=== PATIENT | male | born 1960 | race Caucasian/White ===

== ENCOUNTER 2016-09-13 09:02 | Inpatient (IN) | payer MEDICAID ==
[2016-09-13] MEDS ORDERED: Sodium Chloride 0.9% 1,000 ML IV ONE (09:27)
--- NOTE | 2016-09-13 09:32 | ED Physician Chart ---
Chief Complaint/HPI - Patient Information Date Seen:: 09/13/16 Time Seen:: 09:27 Chief Complaint:: palpitations History of Present Illness:: pt says since awoke today not feeling right. has noted palpitations which he says he hasnt had before but defines as a awareness of heart beating which is unusual. no cp. feels not well w sob sensation at times and a feeling of lt headedness. no meka pmh but he did start lexapro about 3 weeks ago for depresion. also is on omeprazole for reflux. had a cardiac stress tst 5 yrs ago was ok. strong fam hx of cad. no leg edema of pain . pt tried eating a banana and milk w/o improvement. did drink etoh on new yrs but this is unusual and no drug or smoking hx. pt feels like his BP has been high today...has some hx of untxd htn by our records although he has never admitted to me to have been under regular compliant tx for it. He says he has not ever been txd for htn bc of insurance and financial reasons. 10;03a - pt now c/o more dizzy and lt headedness. says he is intermittently worse w sob. has had several seconds of chest pressure on left side as well. Allergies:: Allergies Allergy/AdvReac Type Severity Reaction Status Date / Time MDX No Known Allergies - Nka Allergy Verified 10/13/12 21:32 [No Known Allergies - Nka] Vitals:: Vital Signs - 8 hr 09/13/16 09:10 Temp 96 F HR 118 RR 16 BP 114/72 O2 Sat % 100 Historian:: Patient Review of Systems - Review of Systems General/Constitutional: No fever, No chills, No weight loss, No weakness, No diaphoresis, No edema, No loss of appetite Skin: No skin lesions, No rash, No bruising Head: No headache, No light-headedness Eyes: No loss of vision, No pain, No diplopia ENT: No earache, No nasal drainage, No sore throat, No tinnitus Neck: No neck pain, No swelling, No thyromegaly, No stiffness, No mass noted Cardio Vascular: No chest pain, Palpitations, No PND, No orthopnea, No edema Pulmonary: SOB (?), No SOB, No cough, No sputum, No wheezing GI: No nausea, No vomiting, No diarrhea, No pain, No melena, No hematochezia, No constipation, No hematemesis G/U: No dysuria, No frequency, No hematuria Musculoskeletal: No bone or joint pain, No back pain, No muscle pain Endocrine: No polyuria, No polydipsia Psychiatric: No prior psych history, No depression, No anxiety, No suicidal ideation Hematopoietic: No bruising, No lymphadenopathy Allergic/Immuno: No urticaria, No angioedema Neurological: No syncope, No focal symptoms, No weakness, No paresthesia, No headache, No seizure, Dizziness, No confusion, No vertigo Past Medical History - Past Medical History Past Medical History: PUD/GERD Social History: Non Smoker, No Alcohol, No Drug Use Medication: Reviewed Family Medical History - Family Member Mother History Unknown: Yes Physical Exam - Physical Examination General/Constitutional: Awake, Well-developed, well-nourished, Alert, No distress, GCS 15, Non-toxic appearing, Ambulatory Head: Atraumatic Eyes: Lids, conjuctiva normal, PERRL, EOMI Skin: Nl inspection, No rash, No skin lesions, No ecchymosis, Well hydrated, No lymphadenopathy ENMT: External ears, nose nl, Nasal exam nl, Lips, teeth, gums nl Neck: Nontender, Full ROM w/o pain, No JVD, No nuchal rigidity, No bruit, No mass, No stridor Respiratory: Nl effort/Exclusion, Clear to Auscultation, No Wheeze/Rhonchi/Rales Cardio Vascular: RRR, No murmur, gallop, rubs, NL S1 S2 GI: No tenderness/rebounding/guarding, No organomegaly, No hernia, Normal BS's, Nondistended, No mass/bruits, No McBurney tenderness : No CVA tenderness Extremities: No tenderness or effusion, Full ROM, normal strength in all extremities, No edema, Normal digits & nails Other Extremities comments:: no edema. no homans sx. Neuro/Psych: Alert/oriented, DTR's symmetric, Normal sensory exam, Normal motor strength, Judgement/insight normal, Mood normal, Normal gait, No focal deficits Misc: normal gait, Normal back, No paraspinal tenderness Labs/Radiology/EKG Results - Lab Results Results: Laboratory Tests 09/13/16 09/13/16 09/13/16 09:40 09:40 09:40 WBC 5.6 RBC 4.82 Hgb 14.7 Hct 43.5 MCV 90.2 MCH 30.4 H MCHC Differential 33.7 RDW 12.1 Plt Count 220 MPV 8.4 Neutrophils % 64.0 Lymphocytes % 24.1 Monocytes % 9.8 Eosinophils % 1.6 Basophils % 0.5 D-Dimer < 100 L Sodium 137 Potassium 3.6 Chloride 105 Carbon Dioxide 24.5 Anion Gap 11.1 BUN 20 Creatinine 1.3 Est GFR ( Amer) > 60.0 Est GFR (Non-Af Amer) > 60.0 BUN/Creatinine Ratio 15.4 Glucose 116 H Calcium 9.5 Total Bilirubin 0.5 AST 17 ALT 21 Alkaline Phosphatase 63 Troponin I < 0.01 L Total Protein 7.3 Albumin 4.5 Globulin 2.8 Albumin/Globulin Ratio 1.6 Ethyl Alcohol < 10 - Radiology Results Results: cxr nad ct head nad/ no bleed. - EKG Interpretations EKG Time:: 09:25 Rhythm: nsr [place]: -10 Rate: 102 Comments:: nrml st/t waves ...wnl ED Septic Shock - . Is Septic Shock (SBP<90, OR Lactate>4 mmol\L) present?: No - <6hrs of presentation: Vital Signs: Vital Signs - 8 hr 09/13/16 09:10 Temp 96 F HR 118 RR 16 BP 114/72 O2 Sat % 100 Reassessment (Disposition) - Reassessment Reassessment:: no ectopy seen on monitor. feels better after metoprolol and ntg in ed. results and plan reviewed w pt and family... german Humphries...will admit for cardiac rule out. Reassessment Condition:: Improved - Diagnosis Diagnosis:: 1 chest pain r/o unstable angina 2 htn - untreated 3 palpitations of unknown etiology - Patient Disposition Admitted to:: Telemetry Condition at Disposition:: Improved
[2016-09-13 09:50] LABS: % BASOPHILS 0.5 % (0.0-2.0); % EOSINOPHILS 1.6 % (0.0-5.0); % LYMPHOCYTES 24.1 % (20.0-50.0); % MONOCYTES 9.8 % (2.0-10.0); HEMATOCRIT 43.5 % (39.0-49.0); HEMOGLOBIN 14.7 gm/dL (13.2-17.3); MEAN CELL VOLUME 90.2 fl (80-99); MEAN CORPUSCULAR HEMOGLOBIN 30.4 pg (26.0-30.0); MEAN CORPUSCULAR HGB CONC 33.7 pg (28.0-36.0); MEAN PLATELET VOLUME 8.4 fl; NEUTROPHILE ABSOLUTE 3.7 Th/cmm (1.8-8.0); PLATELET COUNT 220 Th/cmm (150-400); RED BLOOD COUNT 4.82 Mil/cmm (4.30-5.70); RED CELL DISTRIBUTION WIDTH 12.1 % (11.5-20.0); WHITE BLOOD COUNT 5.6 Th/cmm (4.8-10.8)
[2016-09-13 10:05] LABS: ALB/GLOB RATIO 1.6 (1.0-1.8); ALKALINE PHOSPHATASE 63 U/L (34-104); ANION GAP 11.1 (7.0-16.0); BILIRUBIN,TOTAL 0.5 mg/dL (0.3-1.0); BUN - UREA NITROGEN 20 mg/dL (7-25); BUN/CREATININE RATIO 15.4; CALCIUM SERUM 9.5 mg/dL (8.6-10.3); CARBON DIOXIDE 24.5 mEq/L (21.0-31.0); CHLORIDE 105 mEq/L (98-107); CREATININE - SERUM 1.3 mg/dL (0.7-1.3); GLUCOSE 116 mg/dL (70-105); POTASSIUM SERUM 3.6 mEq/L (3.5-5.1); SGOT 17 U/L (13-39); SGPT/ALT 21 U/L (7-52); SODIUM SERUM 137 mEq/L (136-145)
[2016-09-13] MEDS ORDERED: Metoprolol tartrate 1 mg/ml 5mL Amp IV STA (10:05)
[2016-09-13] MEDS ORDERED: Metoprolol tartrate 1 mg/ml 5mL Amp IV ONE (10:08)
--- NOTE | 2016-09-13 11:33 | Diagnostic Imaging Report ---
Portable chest x-ray History: Pain Allowing for portable technique the heart size is normal. No focal pulmonary parenchymal processes. No hilar or mediastinal abnormalities. Impression: No acute abnormalities.
--- NOTE | 2016-09-13 11:54 | Diagnostic Imaging Report ---
CT scan of the brain without intravenous contrast HISTORY: Dizziness Total DLP equals 673 CTDI equals 37.6 Axial sections were obtained from the base of the skull to the vertex. There is a normal ventricular system size. There is prominence of cerebral sulci and subarachnoid cisterns reflecting mild generalized cerebral atrophy. No acute parenchymal abnormalities. No intracerebral hemorrhage. No mass effect or shift of midline structures. No extra-axial masses or abnormal fluid collections. IMPRESSION: 1. No acute abnormalities 2. Mild generalized cerebral atrophy
[2016-09-13 13:28] LABS: BARBITURATES URINE NEGATIVE (NEGATIVE)
[2016-09-13 13:30] LABS: AMPHETAMINE URINE NEGATIVE (NEGATIVE)
--- NOTE | 2016-09-13 14:30 | History & Physical ---
REASON FOR ADMISSION: Chest pain. HISTORY OF PRESENT ILLNESS: A 56-year-old gentleman recently diagnosed with chronic major depression, started on Lexapro 5 mg once a day on 08/25/2016. Since then, he is having some difficulties taking it, so recently decreased the dose to 2.5 mg once a day on Lexapro medication. This morning, the patient woke up and took a bus to the work, not feeling well, felt some palpitations, shortness of breath associated with it, and uneasy, so he came back to the house and walk to the Emergency Room as there was no one at home. The patient says 1 to 2 seconds pain in the left fourth intercostal space also happens few times, some palpitation kind of sensation when overall not feeling well. The patient in the Emergency Room received IV metoprolol 5 mg as his blood pressure was running around 133/98 to 149/91 range. After receiving metoprolol, he started feeling much better. He denies any headache, vision problems, swallowing problem. No URI symptomatology. No fever or chills. Denies passing out. Denies any spotting. No gastroesophageal reflux disease symptomatology. No abdominal pain, nausea, vomiting, diarrhea, or melena. No UTI symptomatology. No hematuria. No leg swelling or joint swelling. PAST MEDICAL HISTORY: Chronic major depression. MEDICATIONS: Lexapro 5 mg once a day, started from 08/25/2016. The patient occasionally takes [id number] Prilosec. ALLERGIES: None. SOCIAL HISTORY: Never smoked, no alcohol or substance abuse. FAMILY HISTORY: Noncontributory. REVIEW OF SYSTEMS: See history of presenting illness. PHYSICAL EXAMINATION: VITAL SIGNS: Height is 1.88 meter, weight 124.7 kg, BMI 35.3, temperature 97.8, pulse 79, respiratory rate 18, blood pressure 120/79. As mentioned earlier, highest was 133/98 to 149/91 and saturation on room air 99%. HEENT: Unremarkable. No icterus, no pallor. No petechiae. No oral candidiasis. NECK: Supple. No JVD, bruit, or lymphadenopathy. LUNGS: Clear. No rales or rhonchi. CARDIOVASCULAR: S1, S2 normal limits. No murmur, gallop or bruit. ABDOMEN: Soft, nontender. No hepatosplenomegaly. Bowel sounds active in all quadrants. EXTREMITIES: Dorsalis pedis palpable. CENTRAL NERVOUS SYSTEM: Cranial nerves intact, nonfocal. MUSCULOSKELETAL: No clubbing, cyanosis, or synovitis. LABORATORY TESTS: EKG normal sinus rhythm, nonspecific ST-T changes noted. WBC 5.6, hemoglobin 14.7, MCV 90, platelet of ____, neutrophil 64. D-dimer is negative. Troponin also negative. Sodium 137, potassium 3.6, chloride 105, bicarbonate 24, BUN 20, creatinine 1.3, glucose of 116 and a calcium of 9.5. Liver panel is unremarkable with albumin of 4.5. Serum alcohol level is negative. Chest x-ray unremarkable. CT head was unremarkable. ASSESSMENT AND PLAN: 1. Chest pain, most likely noncardiac due to the risk factor. We will admit the patient, rule out acute myocardial infarction. We will obtain echo, EKG, troponin q.8 x 3 and a lipid panel in the morning and a Cardiology consult with Dr. Ian Humphries. 2. Hypertension, new onset. We will give the patient metoprolol tartrate 25 mg twice a day. 3. Gastroesophageal reflux disease. We will continue with Pepcid 20 b.i.d. 4. Chronic major depression. We will continue with Lexapro 5 mg once a day. [facility]# [id number]
[2016-09-13 17:18] LABS: URINE BILIRUBIN NEGATIVE (NEGATIVE); URINE BLOOD NEGATIVE (NEGATIVE); URINE COLOR YELLOW; URINE GLUCOSE (UA) NEGATIVE (NEGATIVE); URINE KETONE NEGATIVE (NEGATIVE); URINE PROTEIN NEGATIVE (NEGATIVE); URINE UROBILINOGEN 0.2 E.U./dL (0.2 - 1.0)
--- NOTE | 2016-09-13 21:26 | Admit Criteria Form ---
Admit Criteria Forms - Admit Criteria Diagnosis: TELEMETRY CARE Telemetry Admission Guidelines (Place 'X' for any and all applicable criteria): Admission to telemetry [A] may be indicated for ANY ONE of the following(1)(2)(3 )(4)(5): [X ]I. Cardiac disease, including ANY ONE of the following (9)(10)(11)(12)( 13): [ ]a) Postacute WI [ ]b) Low-risk patients with ST-segment elevation WI who have undergone successful percutaneous coronary intervention [ X]c) Unstable angina [ ]d) Suspected WI (until it is ruled out) [ ]e) Post cardiac surgery (first 48 to 72 hours unless complications occur) [ ]f) Acute arrhythmias (including significant tachycardia or bradycardia) [B] [ ]g) Firing of an implantable cardioverter defibrillator [C] [ ]h) Suspected pacemaker or implantable cardioverter defibrillator malfunction (10) [ ]i) New administration or adjustment of an antiarrhythmic drug [D ] [ ]j) Child admitted for acute congestive heart failure [ ]j) Long QT syndrome [ ]k) Advanced heart block (eg, second-degree Mobitz type II, third- degree heart block) [ ]l) Acute myocarditis or pericarditis [ ]m) Short-term (ambulatory or inpatient) monitoring after a cardiac procedure as indicated by ANY ONE of the following [E]: [ ]i) Electrophysiologic studies [ ]ii) Percutaneous coronary intervention with stent placement [ ]iii) Pacemaker placement with cardiac conduction defect [ ]iv) Implantable cardiac defibrillator placement [ ]II. Drug overdose or poisoning with substance that causes arrhythmias or QT prolongation (eg, phenothiazines, sympathomimetic agents, cyclic antidepressants, digitalis, antiarrhythmic drugs)(15) [ ]III. Short-term (ambulatory or inpatient) monitoring after therapeutic or diagnostic procedure requiring conscious sedation or anesthesia (eg, endoscopy, elective cardioversion) [ ]IV. Acute cerebrovascular even[F](18) [ ]V. Massive blood transfusion (eg, at least 10 units of packed red blood cells in 24 hours) [ ]. Variceal bleeding after endoscopy, sclerotherapy, or IV vasopressin [ ]VII. Uncorrected electrolyte abnormalities associated with an increased risk of dangerous arrhythmia [G]; examples include [ ]a) Hyperkalemia with attributable ECG changes [ ]b) Potassium greater than 6.5 mmol/L (mEq/L) in a patient without history of chronic renal disease [ ]c) Prolonged QT attributed to hypokalemia, hypomagnesemia, or hypocalcemia [ ]VIII.Unexplained syncope or other neurologic event suspected of being due to arrhythmia due to a finding that increases risk; examples include(19)(20)(21): [ ]a) High-risk ECG findings (eg, bifascicular block, bradycardia, abnormal QT interval, ventricular pre- excitation) [ ]b) History of previous syncope due to arrhythmia [ ]c) Abnormal ventricular function (eg, reduced ejection fraction ) [ ]d) Exertional or supine syncope [ ]e) Concerning syncope characteristics (eg, sudden loss of consciousness without prodrome) [ ]f) Family history of sudden [ ]g) Use of arrhythmogenic medication [ ]h) Suspected cardiac ischemia [ ]i) Known channelopathy (eg, long QT syndrome, Brugada syndrome, or catecholaminergic paroxysmal ventricular tachycardia) [ ]j) Known structural heart disease (eg, hypertrophic cardiomyopathy , severe valvular disease) [ ]k) Palpitations preceding syncope The original [employer] content created by [employer] has been revised. The portions of the content which have been revised are identified through the use of italic text or in bold, and [employer] has neither reviewed nor approved the modified material. All other unmodified content is copyright [employer]. Please see references footnoted in the original [employer] edition 2016
[2016-09-14 06:21] LABS: % EOSINOPHILS 2.4 % (0.0-5.0); % LYMPHOCYTES 33.3 % (20.0-50.0); % MONOCYTES 12.2 % (2.0-10.0); % NEUTROPHILS 51.1 % (40.0-80.0); HEMATOCRIT 41.7 % (39.0-49.0); HEMOGLOBIN 14.2 gm/dL (13.2-17.3); MEAN CELL VOLUME 89.4 fl (80-99); MEAN CORPUSCULAR HEMOGLOBIN 30.6 pg (26.0-30.0); MEAN CORPUSCULAR HGB CONC 34.2 pg (28.0-36.0); MEAN PLATELET VOLUME 8.3 fl; NEUTROPHILE ABSOLUTE 2.7 Th/cmm (1.8-8.0); PLATELET COUNT 205 Th/cmm (150-400); RED BLOOD COUNT 4.66 Mil/cmm (4.30-5.70); WHITE BLOOD COUNT 5.3 Th/cmm (4.8-10.8)
[2016-09-14 06:41] LABS: CHLORIDE 105 mEq/L (98-107); SODIUM SERUM 140 mEq/L (136-145)
[2016-09-14 06:42] LABS: ALB/GLOB RATIO 1.6 (1.0-1.8); ALKALINE PHOSPHATASE 54 U/L (34-104); AMYLASE SERUM 32 U/L (29-103); BILIRUBIN,TOTAL 0.5 mg/dL (0.3-1.0); BUN - UREA NITROGEN 20 mg/dL (7-25); BUN/CREATININE RATIO 15.4; CALCIUM SERUM 9.3 mg/dL (8.6-10.3); CHOLESTEROL 197 mg/dL (<200); CREATININE - SERUM 1.3 mg/dL (0.7-1.3); GLUCOSE 107 mg/dL (70-105); SGOT 14 U/L (13-39); SGPT/ALT 19 U/L (7-52); TRIGLYCERIDES 190 mg/dL (<150); URIC ACID 7.9 mg/dL (4.4-7.6)
[2016-09-14] MEDS ORDERED: Influenza Vaccine 0.5 mL Syr IM ONE (09:00)
[2016-09-14] MEDS ORDERED: Pneumococcal Vaccine 0.5 mL Vial IM ONE (09:00)
[2016-09-14] MEDS ORDERED: Escitalopram Oxalate 5 mg Tab PO SCH (09:00)
--- NOTE | 2016-09-14 17:07 | Cardiology ---
Patient of Dr.Vijay Humphries. M-MODE ECHOCARDIOGRAM: Mitral valve, anterior leaflets of mitral valve shows normal excursion, EF velocity. Posterior leaflet of the mitral valve shows normal excursion. Rest of the M-mode echo technically poor. 2D ECHO: Only structure visualized in apical 4-chamber view, which showed normal sized left ventricle with hypertrophy of the left ventricle, ejection fraction 55%. Left atrium normal. Right ventricular cavity, right atrium normal. No pericardial effusion. CONCLUSION: Technically poor echo with hypertrophy of the left ventricle, ejection fraction 55%. Doppler study showed trace tricuspid regurgitation. JOB# [id number]
--- NOTE | 2016-09-14 19:53 | Discharge Summary ---
FINAL DIAGNOSES: 1. Chest pain, atypical myocardial infarction, ruled out. 2. Hypertension, new onset, started on metoprolol 25 b.i.d. and currently stable. 3. Chronic major depression diagnosed on 08/25/2016, on Lexapro 5 mg. The patient is taking 2.5 mg. I advised the patient to go back to 5 mg once a day. 4. Palpitation, workup so far negative. Echocardiogram is pending, but preliminary report from the Echo is negative. 5. Impaired fasting blood sugar. Advised the patient to decrease weight. 6. Exogenous obesity. BMI of 35.3. Advised the patient to decrease weight and follow the diet. 7. Hyperuricemia, mild at 7.9. Advised the patient to eat protein 60-70 g per day. 8. Hypertriglyceridemia. Advised the patient to take Colon-3 fish oil and avoid saturated fat in diet. 9. Gastroesophageal reflux disease, currently the patient is on omeprazole 20 mg once a day and advised small meals, avoid food after 6 p.m., avoid sour food and fatty food, last portion spicy food, caffeine, chocolate, sodas, large quantity of food consumption at time and onion. 10. Postnasal drip. Advised the patient to use saline mist and [id number] Claritin if required. HOSPITAL COURSE AND IMPORTANT LABS: This is a 56-year-old gentleman presented through the Emergency Room not feeling right. The patient also noted some palpitations and heart is beating irregularly or not in correct rhythm. The patient had some chest pain, which lasted only a few seconds on the left side of the fourth intercostal space. The patient also feels that he gets dizzy very easily. He denies any tinnitus or hearing loss. The patient does have postnasal drip, which is getting worse recently and severe gastroesophageal reflux disease. On 08/25/2016, the patient was diagnosed with chronic major depression and started on Lexapro 5 mg, but the patient was not feeling good, so decreased by himself to 2.5 mg and the patient also sometimes has headaches so in the Emergency Room the patient had a CT head, which was unremarkable. Chest x-rays also unremarkable. EKG unremarkable. Troponin negative due to the multitude of symptoms without clear diagnoses. The patient decided to be admitted to the telemetry bed. So far no rhythum disturbance noted on telemetry bed, serial EKG is really unremarkable. Troponin x4 serially is normal. Echocardiogram preliminary exam is negative. Awaiting Cardiology input at present time. Workup so far significant for fasting blood sugar 107, uric acid 7.9, and triglyceride 190. All other workup is unremarkable. Troponin x4 is negative. TSH is 2.62, LDL is 128, and HDL 36. Cholesterol is 197. WBC 5.3, hemoglobin 14.2, MCV 89, and platelet 205,000, sodium 140, potassium 4.0, chloride 105, bicarbonate 28, BUN 20, and creatinine 1.3. Liver panel is unremarkable. Urinalysis negative. Urine tox screen negative. Serum alcohol level negative. Advised the patient to decrease BMI by walking and watching diet and following with primary care physician, repeating the hemoglobin A1c, fasting blood sugar, lipid panel, and uric acid level in the next 3 months. DISCHARGE PRESCRIPTION: Lexapro 5 mg once a day, omeprazole 20 once a day, and metoprolol 25 b.i.d. DISCHARGE INSTRUCTIONS: Follow up with primary care physician in 1 week. [facility]# [id number] MOUNA
--- NOTE | 2016-09-14 23:18 | Consultation ---
Patient of Dr. Darrius Humphries. HISTORY AND PHYSICAL: This 56-year-old obese male patient who has major depression. The patient simply decreased his Lexapro. The patient was traveling in the bus, at which time the patient developed some uneasiness in the chest, palpitation and shortness of breath. Following this, the patient came to the Emergency Room. The patient's blood pressure was elevated, 143/100. The patient was given some medication and the patient's blood pressure improved. Following this, the patient was admitted and Cardiology consult was requested. PAST MEDICAL HISTORY: Major depression, obesity, GERD, hypertension. FAMILY HISTORY: Unremarkable. SOCIAL HISTORY: No history of smoking or alcohol abuse. ALLERGIES: None. PHYSICAL EXAMINATION: VITAL SIGNS: Blood pressure 150/90, pulse 70, respirations 20. HEAD: Normocephalic. No lumps or bumps. EYES: Pupils equal, reactive to light. Fundi show AV nicking. Sclerae white. Conjunctivae pink. NECK: Carotid 2+. Normal upstroke. JVD flat. Thyroid not palpable. Lymph nodes not palpable. CHEST: Shows increased AP diameter. No kyphosis, scoliosis. LUNGS: Bilateral bronchovesicular breath sounds. Occasional wheeze. No rales. HEART: PMI is in fifth intercostal space with lateral to midclavicular line. S1, S2, S3, S4. Systolic murmur grade 2/6 in lower left sternal border without radiation. ABDOMEN: Soft. Liver, spleen not palpable. No organomegaly. Bowel sounds are active. NEUROLOGIC: Unremarkable. EXTREMITIES: Peripheral pulses 2+. No pedal edema. DIAGNOSTIC DATA: EKG showed normal sinus rhythm. Echocardiogram showed hypertrophy of the left ventricle, trace tricuspid regurgitation, ejection fraction 55%. CONCLUSION: Chest pain atypical, we will get troponin levels; hypertension; gastroesophageal reflux disease; major depression; obesity. PLAN: The patient to get echocardiogram. Troponin level if negative, the patient can be discharged since the chest pain is atypical. JOB# [id number]
== END 2016-09-14 14:15 | disposition home or self-care (01) | DRG 203 ==
LOC: ER 09:02 → TELE 12:18
PROVIDERS: ADMIT Internal Medicine; ATTEND Internal Medicine
DX: R07.89 Other chest pain (principal); I10 Essential (primary) hypertension; F32.9 Major depressive disorder, single episode, unspecified; K21.9 Gastro-esophageal reflux disease without esophagitis; Z87.11 Personal history of peptic ulcer disease
CPT/HCPCS: 36415-UA; 70450-TC; 71010-TC; 80053-TC; 80061-TC; 80320-TC; 81003-TC; 82150-TC; 84443-TC; 84484-TC; 84550-TC; 85025-TC; 85379-TC; 90799; 93005; J7030

== ENCOUNTER 2019-02-17 19:53 | Emergency (ER) | payer SELFPAY ==
[2019-02-17] MEDS ORDERED: Aspirin 81mg Chewable Tab PO STA (20:07)
[2019-02-17] MEDS ORDERED: NITROGLYCERIN OINT 2% 1 INCH PACKET TP STA (20:07)
[2019-02-17] MEDS ORDERED: Aspirin 81mg Chewable Tab ONE (20:15)
[2019-02-17] MEDS ORDERED: NITROGLYCERIN OINT 2% 1 INCH PACKET TP ONE (20:17)
[2019-02-17] MEDS ORDERED: Aspirin 325 mg EC PO ONE (20:19)
--- NOTE | 2019-02-17 20:24 | ED Physician Chart ---
ED Chief Complaint/HPI - Patient Information Date Seen:: 02/17/19 Time Seen:: 20:20 Chief Complaint:: dizziness chest pressure History of Present Illness:: 59 yr old male who was not able to get his bp meds due to lack of funds he has gotten it since then the metoprolol 25 mg po bid but still bp still up to 150 to160 and still feeling not well with dizziness and sob Allergies:: Allergies Allergy/AdvReac Type Severity Reaction Status Date / Time No Known Allergies Allergy Verified 09/13/16 09:44 Vitals:: Vital Signs - 8 hr 02/17/19 20:00 Temp 97.4 F HR 87 RR 18 BP 160/94 O2 Sat % 98 ED Review of Systems - Review of Systems General/Constitutional: No fever, No chills, No weight loss, No weakness, No diaphoresis, No edema, No loss of appetite Skin: No skin lesions, No rash, No bruising Head: No headache, No light-headedness Eyes: No loss of vision, No pain, No diplopia ENT: No earache, No nasal drainage, No sore throat, No tinnitus Neck: No neck pain, No swelling, No thyromegaly, No stiffness, No mass noted Cardio Vascular: Chest pain Pulmonary: SOB GI: No nausea, No vomiting, No diarrhea, No pain, No melena, No hematochezia, No constipation, No hematemesis G/U: No dysuria, No frequency, No hematuria Musculoskeletal: No bone or joint pain, No back pain, No muscle pain Endocrine: No polyuria, No polydipsia Psychiatric: No prior psych history, No depression, No anxiety, No suicidal ideation Hematopoietic: No bruising, No lymphadenopathy Allergic/Immuno: No urticaria, No angioedema Neurological: Dizziness ED Past Medical History - Past Medical History Past Medical History: HTN, Dyslipidemia Family Medical History - Family Member Mother History Unknown: Yes Living Status: Hx Family Hypertension: Yes Hx Family Stroke: Yes ED Physical Exam - Physical Examination General/Constitutional: Awake, Well-developed, well-nourished, Alert, No distress, GCS 15, Non-toxic appearing, Ambulatory Head: Atraumatic Eyes: Lids, conjuctiva normal, PERRL, EOMI Skin: Nl inspection, No rash, No skin lesions, No ecchymosis, Well hydrated, No lymphadenopathy ENMT: External ears, nose nl, Nasal exam nl, Lips, teeth, gums nl Neck: Nontender, Full ROM w/o pain, No JVD, No nuchal rigidity, No bruit, No mass, No stridor Respiratory: Nl effort/Exclusion, Clear to Auscultation, No Wheeze/Rhonchi/Rales Cardio Vascular: RRR, No murmur, gallop, rubs, NL S1 S2 GI: No tenderness/rebounding/guarding, No organomegaly, No hernia, Normal BS's, Nondistended, No mass/bruits, No McBurney tenderness : No CVA tenderness Extremities: No tenderness or effusion, Full ROM, normal strength in all extremities, No edema, Normal digits & nails Neuro/Psych: Alert/oriented, DTR's symmetric, Normal sensory exam, Normal motor strength, Judgement/insight normal, Mood normal, Normal gait, No focal deficits Misc: Normal back, No paraspinal tenderness ED Assessment - Assessment General Assessment: sob cp htn out of control ED Septic Shock - . Is Septic Shock (SBP<90, OR Lactate>4 mmol\L) present?: No - <6hrs of presentation: Vital Signs: Vital Signs - 8 hr 02/17/19 20:00 Temp 97.4 F HR 87 RR 18 BP 160/94 O2 Sat % 98 ED Reassessment (Disposition) - Reassessment Reassessment:: cp sob elevated bp - Diagnosis Diagnosis:: as above - Patient Disposition Discharge/Transfer:: Home Condition at Disposition:: Stable
[2019-02-17 20:37] LABS: % EOSINOPHILS 2.3 % (0.0-5.0); % LYMPHOCYTES 35.5 % (20.0-50.0); % MONOCYTES 9.9 % (2.0-10.0); % NEUTROPHILS 51.3 % (40.0-80.0); BASOPHILE ABSOLUTE 0.1 Th/cumm (0-0.2); EOSINOPHILE ABSOLUTE 0.1 Th/cmm (0.1-0.4); HEMATOCRIT 40.4 % (41.0-60); HEMOGLOBIN 13.4 gm/dL (12-16); LYMPHOCYTE ABSOLUTE 1.8 Th/cmm (1.5-3.0); MEAN CELL VOLUME 90.8 fl (80-99); MEAN CORPUSCULAR HEMOGLOBIN 30.2 pg (26.0-30.0); MEAN CORPUSCULAR HGB CONC 33.3 pg (28.0-36.0); MONOCYTE ABSOLUTE 0.5 Th/cmm (0.3-1.0); NEUTROPHILE ABSOLUTE 2.7 Th/cmm (1.8-8.0); PLATELET COUNT 263 Th/cmm (150-400); RED BLOOD COUNT 4.45 Mil/cmm (4.30-5.70); RED CELL DISTRIBUTION WIDTH 12.6 % (11.5-20.0); WHITE BLOOD COUNT 5.2 Th/cmm (4.8-10.8)
[2019-02-17 20:51] LABS: URINE SOURCE CLEAN C
[2019-02-17 20:51] LABS: ALB/GLOB RATIO 1.9 (1.0-1.8); ALBUMIN 4.1 gm/dL (4.2-5.5); ALKALINE PHOSPHATASE 59 U/L (34-104); ANION GAP 12.4 (7.0-16.0); BILIRUBIN,TOTAL 0.3 mg/dL (0.3-1.0); BUN - UREA NITROGEN 17 mg/dL (7-25); CALCIUM SERUM 8.9 mg/dL (8.6-10.3); CHLORIDE 106 mEq/L (98-107); CREATININE - SERUM 1.3 mg/dL (0.7-1.3); CREATININE KINASE 166 U/L (30-223); GFR AFRICAN-AMERICAN > 60.0 ml/min (>90); GFR NON AFRICAN-AMERICAN > 60.0 ml/min; GLUCOSE 134 mg/dL (70-105); POTASSIUM SERUM 3.4 mEq/L (3.5-5.1); SGOT 15 U/L (13-39); SGPT/ALT 18 U/L (7-52); SODIUM SERUM 140 mEq/L (136-145); TOTAL PROTEIN,SERUM 6.3 gm/dL (6.0-8.3)
[2019-02-17 20:53] LABS: URINE BILIRUBIN NEGATIVE (NEGATIVE); URINE BLOOD NEGATIVE (NEGATIVE); URINE GLUCOSE (UA) NEGATIVE (NEGATIVE); URINE KETONE NEGATIVE (NEGATIVE); URINE LEUKOCYTE ESTERASE NEGATIVE (NEGATIVE); URINE NITRATE NEGATIVE (NEGATIVE); URINE PROTEIN NEGATIVE (NEGATIVE)
[2019-02-17 20:54] LABS: URINE CLARITY CLEAR (CLEAR); URINE COLOR YELLOW; URINE MICROSCOPIC INDICATED? YES
[2019-02-17 20:57] LABS: URINE BACTERIA OCCASIONAL /hpf (NONE SEEN); URINE EPITHELIAL CELLS OCCASIONAL /lpf (FEW); URINE RBC NONE SEEN /hpf (0-5); URINE WBC 0-2 /hpf (0-5)
[2019-02-17] MEDS ORDERED: Potassium Chloride 20 mEq ER Tab PO ONE ×2 (21:03→21:05)
== END 2019-02-17 21:47 | disposition home or self-care (01) ==
LOC: ER 19:53
DX: I10 Essential (primary) hypertension (principal); R07.89 Other chest pain; R06.02 Shortness of breath; E78.5 Hyperlipidemia, unspecified
CPT/HCPCS: 36415-UA; 80053-TC; 81001-TC; 82550-TC; 84484-TC; 85025-TC; 93005